=== PATIENT | female | born 1985 | race Caucasian/White ===

== ENCOUNTER 2020-02-04 06:15 | Outpatient (CLI) | payer MEDICAID, SELFPAY ==
[2020-02-04 16:20] LABS: SARS-CoV-2 RNA PCR Negative
--- NOTE | 2020-02-07 10:22 | OP_ITS ---
DATE OF PROCEDURE: 02/07/2020 PREOPERATIVE DIAGNOSIS: Missing IUD strings. POSTOPERATIVE DIAGNOSIS: Missing IUD strings. PROCEDURE PERFORMED: Cervical dilation with removal of IUD under anesthesia. SURGEON: Mónica Winston M.D. ANESTHESIA: MAC and local. FINDINGS: The IUD is removed intact. ESTIMATED BLOOD LOSS: Zero. PATHOLOGY: None. DESCRIPTION OF PROCEDURE: The patient was taken to the operating room, placed in the dorsal lithotomy position. She was prepped and draped in the usual sterile fashion and placed under anesthesia. Bivalved speculum was placed in the vagina. Cervix was grasped on the anterior lip with a tenaculum and injected with 1% lidocaine. The uterus was sounded to 7 cm. The cervix was serially dilated with Hegar. The polyp forceps were used to remove the IUD on the first attempt, intact. All instruments are removed. The patient is taken to Recovery in stable condition. Alla I MT: [facility]
== END 2020-02-04 06:16 | disposition home or self-care (01) ==
LOC: ANHCOVIDDT 06:16
PROVIDERS: Visit Provider Obstetrics & Gynecology Gynecology
DX: Z01.818 Encounter for other preprocedural examination (principal); Z11.59 Encounter for screening for other viral diseases; R10.2 Pelvic and perineal pain
CPT/HCPCS: 87635; U0003

== ENCOUNTER 2020-02-07 00:20 | Day surgery (SDC) | payer MEDICAID, SELFPAY ==
[2020-02-01 11:38] VITALS: BMI 26.2
[2020-02-07 07:07] VITALS: BP 98/76; PULSE 88; RESP 18; TEMP 36.7; O2SAT 100
--- NOTE | 2020-02-07 07:30 | PM.HPGS ---
History of Present Illness History of Present Illness Consent: Risks, benefits, and alternatives have been discussed and questions answered. Patient agrees to proceed with procedure. Chief complaint: misplaced IUD Narrative: Laina Bello is a 34 year old female with missing IUD strings. U/s showed IUD in place but patient did not tolerate attempted removal in office. Reviewed removal of IUD under anesthesia with possible need for hysteroscopy. Risks of infection, bleeding, and perforation reviewed. Patient instructed to wait one cycle before . She voices understanding and agrees to procee. PMF Past Medical History Medical History (Updated 02/07/20 @ 07:34 by Mónica Winston MD) Cancer of skin, squamous cell (normal spontaneous vaginal delivery) Skin cancer, basal cell Surgical History Surgical History (Updated 02/07/20 @ 07:33 by Mónica Winston MD) S/P appendectomy Meds Home Medications and Allergies Home Medications Medication Instructions Recorded Confirmed Type glucosamine-chondroitin [Osteo 1 tablet PO DAILY 02/01/20 02/01/20 History Bi-Flex] 21-iron fu-folic acid 1 tablet PO DAILY 02/01/20 02/01/20 History [ Complete] Allergies Allergy/AdvReac Type Severity Reaction Status Date / Time No Known Allergies Allergy Mild Unverified 02/01/20 11:40 Exam Const: General: healthy appearing and alert Orientation/consciousness: patient oriented x3 Resp: Effort & Inspection: normal respiratory effort Auscultation: clear to auscultation bilaterally Cardio: Rate: regular rate Rhythm: regular rhythm GI: GI Palp: Yes Soft to palpation, No Tenderness to palpation present (GI) and No Palpable mass present : External Female Exam: normal external appearance Speculum Exam - Vagina: normal appearance of the vagina and normal vaginal discharge Speculum Exam - Cervix: normal appearance of the cervix Bimanual exam- vagina & uterus: uterine size normal and consistency normal Bimanual Exam- Adnexa, other: normal adnexae and No adnexal tenderness Neuro: General: patient oriented x3 Assessment and Plan Assessment and plan (1) IUD strings lost: Code(s): T83.32XA - Displacement of intrauterine contraceptive device, initial encounter Status: Acute Assessment and Plan: Plan removal under anesthesia with possible hysteroscopic removal
[2020-02-07] MEDS: LACTATED RINGERS 1,000 ML 30 ML IV CONT (07:45)
--- NOTE | 2020-02-07 07:52 | WPDANESEPPF ---
Anes - Initial Pre Proc Eval Procedure: Operation Date: 02/07/20 09:00 Proposed Procedures p Hysteroscopy, Removal Intra Uterine Device - Mónica Winston MD Date/Time: 02/07/20 07:52 Surgeon: Mónica Winston MD Pre Op Diagnosis: misplaced IUD Patient Data Age: 34 Gender: F Height: 4 ft 11 in Weight: 57.7 kg Last Vital Signs Temp 36.7 C 02/07/20 07:07 Pulse 88 02/07/20 07:07 Resp 18 02/07/20 07:07 BP 98/76 L 02/07/20 07:07 Pulse Ox 100 02/07/20 07:07 Allergies Allergy/AdvReac Type Severity Reaction Status Date / Time No Known Allergies Allergy Mild Unverified 02/07/20 07:37 Home Medications Medication Instructions Recorded Confirmed Type glucosamine-chondroitin [Osteo 1 tablet PO DAILY 02/01/20 02/07/20 History Bi-Flex] 21-iron fu-folic acid 1 tablet PO DAILY 02/01/20 02/07/20 History [ Complete] Patient hx anesthesia problems: none Family hx anesthesia problems: none PMFSH Past Medical History Medical History (Updated 02/07/20 @ 07:53 by Willie Nair MD) Cancer of skin, squamous cell (normal spontaneous vaginal delivery) Polysubstance abuse Skin cancer, basal cell Surgical History Surgical History S/P appendectomy Anes - Eval Final PreProcedure Day of Procedure 02/07/20 07:52 Patient weight: normal Heart: regular rate and rhythm Lungs: decreased breath sounds Airway: Mallampati scale class II Neurological: alert and oriented Last oral intake: >/= 8 hours ASA classification: III Emergent: no Anesthetic plan: proceed Anesthesia type and monitoring: general GIVS and standard monitoring Informed Consent: The patient's anesthetic plan and its attendant risks and benefits were discussed with the patient/family/POA. Questions were solicited and answers provided to the satisfaction of the patient/family/POA.
[2020-02-07] MEDS: KETOROLAC 30 MG/ML VIAL (*BKC) 15 MG IV PUSH (09:30)
--- NOTE | 2020-02-07 09:31 | PM.OP ---
Procedure Note - Brief Procedure Note - Brief Date of procedure: 02/07/20 Pre-op diagnosis: misplaced IUD missing strings of IUD Post-op diagnosis: same Procedure performed: Removal of IUD under anesthesia; cervical dilation Anesthesia: MAC and local Surgeon: Mónica Winston MD Estimated blood loss (mL): 0 Drains: No Packing: No Pathology: none sent Complications: No immediate complications Condition: stable Disposition: PACU Findings: IUD removed intact
[2020-02-07 09:37] VITALS: BP 103/72; PULSE 81; RESP 15; O2SAT 92
--- NOTE | 2020-02-07 09:39 | OP_ITS ---
This report was moved to the correct visit, [id number] on 02/08/20. Original report was signed by Dr. Mónica Winston on 02/07/20 at 1126. DATE OF PROCEDURE: 02/07/2020 PREOPERATIVE DIAGNOSIS: Missing IUD strings. POSTOPERATIVE DIAGNOSIS: Missing IUD strings. PROCEDURE PERFORMED: Cervical dilation with removal of IUD under anesthesia. SURGEON: Mónica Winston M.D. ANESTHESIA: MAC and local. FINDINGS: The IUD is removed intact. ESTIMATED BLOOD LOSS: Zero. PATHOLOGY: None. DESCRIPTION OF PROCEDURE: The patient was taken to the operating room, placed in the dorsal lithotomy position. She was prepped and draped in the usual sterile fashion and placed under anesthesia. Bivalved speculum was placed in the vagina. Cervix was grasped on the anterior lip with a tenaculum and injected with 1% lidocaine. The uterus was sounded to 7 cm. The cervix was serially dilated with Hegar. The polyp forceps were used to remove the IUD on the first attempt, intact. All instruments are removed. The patient is taken to Recovery in stable condition. Alla I MT: [facility] Dictated By: Mónica Winston MD 02/07/20 0939 Transcribed Date/Time: 02/07/20 1017 Signed By: Mónica Winston MD 02/07/20 1126 [facility]
[2020-02-07 10:00] VITALS: BP 114/71; PULSE 65; RESP 16; O2SAT 95
[2020-02-07 10:20] VITALS: BP 118/69; PULSE 60; RESP 16
== END 2020-02-07 10:33 | disposition home or self-care (01) ==
PROVIDERS: Visit Provider Obstetrics & Gynecology Gynecology
PROC: 0U5B8ZZ Destruction of Endometrium, Via Natural or Artificial Opening Endoscopic (ICD-10-PCS; CPT 58563; principal; 2020-02-07 09:00)
DX: T83.32XA Displacement of intrauterine contraceptive device, initial encounter (principal); Y84.8 Other medical procedures as the cause of abnormal reaction of the patient, or of later complication, without mention of misadventure at the time of the procedure
CPT/HCPCS: 58562; A9270; J1100; J1885; J2001; J2250; J2405; J2704; J3010; J7030; J7120

== ENCOUNTER 2021-10-06 10:37 | Outpatient (CLI) | payer OTHER, SELFPAY ==
[2021-10-06 11:00] LABS: Basophils Percent Auto 0.3 % (0.2-1.2); Eosinophils Percent Auto 0.2 % (0-4.4); Immature Granulocyte Absolute 0.11 K/mm3 (0.00-0.031); Immature Granulocyte Percent A 0.9 % (0-0.5); Lymphocytes Absolute Auto 1.94 K/mm3 (0.9-3.2); Lymphocytes Percent Auto 15.4 % (18.3-44.2); Mean Corpuscular HGB Conc 34.1 g/dl (32-36); Mean Corpuscular Hemoglobin 31.4 pg (26-34); Mean Corpuscular Volume 91.9 fl (80-100); Mean Platelet Volume 9.9 fl (7.4-10.4); Monocytes Absolute Auto 0.7 K/mm3 (0.1-0.6); Monocytes Percent Auto 5.5 % (2.6-8.5); Neutrophils Absolute Auto 9.8 K/mm3 (1.3-6.7); Neutrophils Percent Auto 77.7 % (45.5-73.1); Platelet Count Result 197 k/mm3 (150-375); Red Blood Count 4.46 M/mm3 (4.2-5.4); Red Cell Distribution Width 13.2 % (11.5-14.5); White Blood Count 12.6 K/mm3 (4.5-10.0)
[2021-10-08 11:22] LABS: Rapid Plasma Reagin Non-Reactive (NonReactive)
== END 2021-10-06 10:38 | disposition home or self-care (01) ==
LOC: ANHOBOP 10:41
PROVIDERS: Visit Provider Obstetrics & Gynecology Gynecology
DX: Z01.818 Encounter for other preprocedural examination (principal)
CPT/HCPCS: 36415; 85025; 86592; 86850; 86900; 86901

== ENCOUNTER 2021-10-08 07:55 | Inpatient (IN) | payer OTHER, SELFPAY ==
[2021-10-08] VITALS (59 sets, daily range): BP systolic 61–117; BP diastolic 48–78; PULSE 52–206; RESP 12–18; TEMP 35.7–36.8; O2SAT 95–100; BMI 30.2
--- NOTE | 2021-10-08 07:45 | P.HP_ITS ---
H&P: HPI History of Present Illness Date/Time: 10/08/21 07:45 Chief Complaint: Intrauterine at 39 weeks; New herpes lesion Narrative: The patient is a 36-year-old 5 para 4 at 39 weeks gestation admitted for primary . At the patient's last OB visit on 10/04 she reported a tender area on the labia. On exam a 0.5cm ulceration is noted. Patient denies any history of herpes in the genital area out or orally. PCR testing of the lesion was performed and is pending. In addition the patient went for IgG and IgM HSV testing. The IgG returned on 10/05 as positive. It was discussed with the patient the risks of herpes to the infant if we delivered vaginally with a herpes lesion. It was recommended to proceed with a and the patient has agreed. The patient's has also been complicated by gestational diabetes diet controlled, IUGR with improved growth on the last several ultrasounds. Dopplers were initially elevated but have returned to normal. In addition the placenta was noted to have an accessory lobe. For advanced maternal age the patient is followed by [facility] with normal anatomy screen and a negative NIPT. labs: O positive, the RPR negative, hepatitis-B surface antigen negative, rubella immune, group B strep negative, HIV negative. PMFSH Past Medical History Medical History (Updated 10/08/21 @ 07:53 by Mónica Winston MD) (normal spontaneous vaginal delivery) X4 Surgical History Surgical History (Updated 10/08/21 @ 07:51 by Mónica Winston MD) History of appendectomy Family History Family History (Updated 09/17/21 @ 13:45 by Dean Martin RN) Other No pertinent family history Social History Social History Substance use: current Spiritual care concerns: No Meds Home Medications and Allergies Home Medications Medication Instructions Recorded Confirmed Type PNV cmb#95-ferrous fumarate-FA 1 tablet PO DAILY 09/17/21 09/17/21 History [] Allergies Allergy/AdvReac Type Severity Reaction Status Date / Time No Known Allergies Allergy Verified 09/17/21 13:53 Exam Const: General: healthy appearing and alert Orientation/consciousness: patient oriented x3 Resp: Effort & Inspection: normal respiratory effort GI: GI Palp: Yes Soft to palpation, No Tenderness to palpation present (GI) and Yes Other GI palpation findings present (Fundal height 37cm) : External Female Exam: other (0.5cm ulceration the left labia) Speculum Exam - Vagina: normal appearance of the vagina and normal vaginal discharge Speculum Exam - Cervix: normal appearance of the cervix Bimanual exam- vagina & uterus: uterine size normal and consistency normal Bimanual Exam- Adnexa, other: normal adnexae and No adnexal tenderness Neuro: General: patient oriented x3 Assessment and Plan Assessment and plan (1) 39 weeks gestation of : Code(s): Z3A.39 - 39 weeks gestation of Status: Acute (2) Genital HSV: Code(s): 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
--- NOTE | 2021-10-08 07:45 | WPDHPUPDATE1 ---
History and Physical Update Update Date/Time: 10/08/21 07:45 History and Physical has been reviewed, including an updated exam of the patient. There are NO changes in the patient's condition. Risks, benefits, and alternatives have been discussed and questions answered. Patient agrees to proceed with procedure.
--- NOTE | 2021-10-08 08:09 | WPDANESEPPF ---
Anes - Initial Pre Proc Eval Procedure: Operation Date: 10/08/21 10:00 Proposed Procedures p Primary Section - Mónica Winston MD Date/Time: 10/08/21 08:09 Surgeon: Mónica Winston MD Pre Op Diagnosis: Section Patient Data Age: 36 Gender: F Height: Weight: Allergies Allergy/AdvReac Type Severity Reaction Status Date / Time No Known Allergies Allergy Verified 09/17/21 13:53 Home Medications Medication Instructions Recorded Confirmed Type PNV cmb#95-ferrous fumarate-FA 1 tablet PO DAILY 09/17/21 09/17/21 History [] Patient hx anesthesia problems: none Family hx anesthesia problems: none Results Review: All pre-operative results and documents have been reviewed as part of the pre-operative evaluation. PMFSH Past Medical History Medical History (Updated 10/08/21 @ 07:53 by Mónica Winston MD) (normal spontaneous vaginal delivery) X4 Surgical History Surgical History (Updated 10/08/21 @ 07:51 by Mónica Winston MD) History of appendectomy Family History Family History Other No pertinent family history Social History Social History Substance use: current Spiritual care concerns: No Anes - Eval Final PreProcedure Day of Procedure 10/08/21 08:09 Patient weight: normal Heart: regular rate and rhythm Lungs: clear to auscultation Airway: Mallampati scale class II Neurological: alert and oriented Last oral intake: >/= 8 hours ASA classification: III Emergent: no Anesthetic plan: proceed Anesthesia type and monitoring: regional spinal and standard monitoring Results Review: All pre-operative results and documents have been reviewed as part of the pre-operative evaluation. Informed Consent: The patient's anesthetic plan and its attendant risks and benefits were discussed with the patient/family/POA. Questions were solicited and answers provided to the satisfaction of the patient/family/POA.
[2021-10-08 08:33] LABS: Glucose Point of Care 66 mg/dl (65-105)
[2021-10-08] MEDS: LACTATED RINGERS 1,000 ML 999 ML IV CONT (08:33)
--- NOTE | 2021-10-08 08:38 | LDADM ---
This patient, Laina Conway, was admitted to Labor/Delivery/Recovery 120 on 10/08/21 at 07:55. Plans for section, pain management and were discussed with patient. Patient/family oriented to hospital policies and general routines including ID bracelet, bed and alarms, visiting hours, pain management, procedures, bathroom and other care routines, personal items, smoking policy, room service/diet and guest tray routines, security routines, and visiting hours. Patient/Family are encouraged to report perceived risks to care and to ask questions if they do not understand what they are told or what they should do. See OBIX for further documentation.
[2021-10-08] MEDS: LACTATED RINGERS 1,000 ML 125 ML IV CONT (09:15)
[2021-10-08] MEDS: ceFAZolin 2 GM/D5W 50 ML 2 GM/50 ML BAG IVPB (09:50)
--- NOTE | 2021-10-08 10:33 | W.PM.PROC2 ---
Procedure Note - Detailed Date of Procedure 10/08/21 Pre-op Diagnosis Intrauterine at 39 weeks; primary herpes lesion; gestational diabetes diet control; small for gestational age; accessory lobe placenta Post-op Diagnosis same Procedure Performed Primary low-transverse section Surgeon Mónica Winston MD Anesthesia spinal Findings Female infant 5lb 15oz with 9 and 9 Apgars. Normal-appearing tubes ovaries and uterus Description of Procedure The patient was taken to the operating room and placed under anesthesia in the dorsal supine position with a leftward tilt. She was prepped and draped in the usual sterile fashion. Once anesthesia was deemed adequate, a Pfannenstiel skin incision was made with a scalpel and carried down to the underlying layer of fascia. The fascia was nicked in the midline with the scalpel and the incision extended laterally using Dobbs scissors. Ochsner was used to tent the fascia which was then dissected off using sharp and blunt dissection. The rectus muscles were in the midline the peritoneum was tented and entered with Metzenbaum scissors. The incision was extended with blunt traction. The bladder blade was placed. The vesicouterine peritoneum was tented and entered with Metzenbaum scissors. The incision was extended laterally and the bladder flap created digitally. A bleeding vessel in the bladder flap was cauterized for hemostasis. The lower uterine segment was incised in a transverse fashion with the scalpel. The incision was extended laterally using blunt traction. The membranes were ruptured and clear fluid noted. The infant's head was delivered through the incision while the assistant corporation counsel applied fundal pressure. The remainder of the was fully delivered and the cord clamped and cut. The infant was handed to the waiting nursery nurse. The cord blood for gases and lab were taken. The placenta is removed using manual traction. The placenta is inspected and noted to have the accessory lobe attached. The uterus is cleared of all clots and debris and exteriorized. The uterine incision was closed using 0 Monocryl in a running locked fashion. Same suture was used to imbricate and 1 additional [id number] suture for hemostasis. The cul-de-sac is irrigated and the uterus is returned to the abdomen. The gutters were irrigated. The incision is again inspected and noted to be hemostatic. The fascia is closed using 0 Vicryl in a running fashion. The subcutaneous tissues are irrigated and made hemostatic using Bovie cautery. Skin incision was closed using 4-0 Vicryl in a subcuticular fashion. Dermaflex was placed over the incision. Sponge, needle, and instrument counts are correct per the OR staff. The patient was given Ancef prior to incision. Estimated Blood Loss 455 Drains Yes (Schmitt catheter) Packing No Pathology yes (Placenta) Complications No immediate complications Condition stable Disposition floor
--- NOTE | 2021-10-08 10:39 | P.DS_ITS ---
DS: Admitting Diagnosis Discharge Date 10/11/21 Admitting Diagnosis Intrauterine at 39 weeks Primary herpes lesion Gestational diabetes diet controlled Small for gestational age Accessory lobe DS: Discharge Diagnosis Discharge Diagnosis (1) delivery delivered: Code(s): O82 - Encounter for delivery without indication Status: Acute OB - DS: Summary OB Procedures : NST and Ultrasound OB Procedures Intrapartum: low cervical, transverse OB Procedures: : None Peripartum Data Delivery Method: Section Procedures: Procedures Operation Date: 10/08/21 10:00 <No data on this case meets the specified criteria> complications: none Status at Discharge Functional status at discharge: independent ambulation Overall status at discharge: patient is progressing back to baseline Time Spent with Patient Time attestation: Total time spent providing and/or coordinating discharge services: DS: Data Data Completed and Pending Pending studies at discharge: Pending at discharge 10/08/21 10:16 Surgical [PTH] Routine Labs on day of discharge: Labs from last 24 hours 10/08/21 08:24 POC Capillary Glucose 66 Discharge Plan Discharge Attending physician on discharge: Mónica Winston Discharging Clinician: Mónica Winston Anticipated Discharge Date/Time: 10/11/21 10:38 Patient Disposition: Home, Self-Care Activity: may shower, may drive after 2 weeks and pelvic rest Diet: regular Wound Care Instructions: incision open to air Patient Instructions: Antibiotic Form Stand Alone Forms: General Discharge Information Follow-up/Referrals: Mónica Winston MD [Physician] - 1 Week (and 6 wk) Discharge Medications: New hydrocodone-acetaminophen 5-325 mg Tablet 1 tablet PO Q3H PRN (Reason: Moderate Pain (4-6)) Qty: 30 RF: 0 valacyclovir [Valtrex] 500 mg tablet 500 mg PO Q12H Qty: 90 RF: 3 medroxyprogesterone [Depo-Provera] 150 mg/mL syringe 150 mg IM [id number] Qty: 1 RF: 2 Continued PNV cmb#95-ferrous fumarate-FA [] 28 mg iron- 800 mcg Tablet 1 tablet PO DAILY RF: 0 ergocalciferol (vitamin D2) 1,250 mcg (50,000 unit) capsule 50,000 unit PO WEEKLY RF: 0 Date of admission: 01/10/22 07:55 Primary Care Provider: PHYSICIAN,[employer] INFORMATION CLERK Admitting Provider: Mónica Winston Attending physician on admission: Mónica Winston Condition: Stable
--- NOTE | 2021-10-08 13:10 | PC.NURSE ---
Patient transferred to post room #282 per stretcher from labor and delivery. Support person present. Oriented to unit, room, information board, rooming in, admission packet and security measures. Patient verbalizes understanding.
[2021-10-08 13:41] LABS: Amphetamine Screen Urine Negative (Negative); Barbiturate Screen Urine Negative (Negative); Benzodiazepines Screen Urine Negative (Negative); Cannabinoid Screen Urine Positive (Negative); Cocaine Screen Urine Negative (Negative); Methadone Screen Urine Negative (Negative); Opiate Screen Urine Negative (Negative); Phencyclidine Screen Urine Negative (Negative)
[2021-10-08] MEDS: OXYTOCIN 30 UNITS/NS 500 ML 30 UNITS/500 ML BAG 125 UNITS IV CONT (15:05)
[2021-10-08] MEDS: HYDROcodone/acetaminophen (*CRX) 5-325 MG TABLET 1 TAB PO (19:13)
[2021-10-08] MEDS: DEXTROSE 5%/0.45% SOD CHL 1,000 ML 125 ML IV CONT (19:14)
[2021-10-08] MEDS: valACYclovir HCL 500 MG TABLET PO (20:38)
[2021-10-08] MEDS: KETOROLAC 30 MG/ML VIAL (*BKC) IV PUSH (23:50)
[2021-10-09 04:30] VITALS: BP 92/62; PULSE 72; RESP 18; TEMP 36.1; O2SAT 97
[2021-10-09] MEDS: HYDROcodone/acetaminophen (*CRX) 5-325 MG TABLET 1 TAB PO ×2 (04:30→18:34)
[2021-10-09 05:22] LABS: Basophils Percent Auto 0.3 % (0.2-1.2); Eosinophils Absolute Auto 0.1 K/mm3 (0-0.3); Eosinophils Percent Auto 0.5 % (0-4.4); Hematocrit 36.3 % (37.0-47.0); Hemoglobin 12.1 g/dL (12.0-15.0); Immature Granulocyte Absolute 0.05 K/mm3 (0.00-0.031); Immature Granulocyte Percent A 0.4 % (0-0.5); Lymphocytes Absolute Auto 1.36 K/mm3 (0.9-3.2); Lymphocytes Percent Auto 11.9 % (18.3-44.2); Mean Corpuscular HGB Conc 33.3 g/dl (32-36); Mean Corpuscular Hemoglobin 30.8 pg (26-34); Mean Corpuscular Volume 92.4 fl (80-100); Monocytes Absolute Auto 0.6 K/mm3 (0.1-0.6); Monocytes Percent Auto 5.3 % (2.6-8.5); Neutrophils Absolute Auto 9.4 K/mm3 (1.3-6.7); Neutrophils Percent Auto 81.6 % (45.5-73.1); Platelet Count Result 168 k/mm3 (150-375); Red Blood Count 3.93 M/mm3 (4.2-5.4); Red Cell Distribution Width 13.2 % (11.5-14.5); White Blood Count 11.5 K/mm3 (4.5-10.0)
--- NOTE | 2021-10-09 07:25 | PM.OBPNVD ---
OB - PN: Subj Subjective Date/time seen: 10/09/21 07:25 Patient comments: no complaints and pain well controlled baby status: doing well OB - PN: Obj Data Labs CBC & Chem 7: 10/09/21 04:38 Labs: Laboratory Results - last 24 hr 10/08/21 10/08/21 10/09/21 08:24 12:35 04:38 WBC 11.5 H RBC 3.93 L Hgb 12.1 Hct 36.3 L MCV 92.4 MCH 30.8 MCHC 33.3 RDW 13.2 Plt Count 168 MPV 10.0 Immature Gran % (Auto) 0.4 Neut % (Auto) 81.6 H Lymph % (Auto) 11.9 L [place] % (Auto) 5.3 Eos % (Auto) 0.5 Baso % (Auto) 0.3 Lymph # (Auto) 1.36 [place] # (Auto) 0.6 Eos # (Auto) 0.1 Baso # (Auto) 0.0 Abs Immat Gran (auto) 0.05 H Absolute Neuts (auto) 9.4 H Absolute Nucleated RBC 0.0 Nucleated RBC % 0.0 POC Capillary Glucose 66 Urine Opiates Screen Negative Urine Methadone Screen Negative Ur Barbiturates Screen Negative Ur Phencyclidine Scrn Negative Ur Amphetamine Screen Negative U Benzodiazepines Scrn Negative Urine Cocaine Screen Negative U Cannabinoids Screen Positive A OB - PN A/P Plan day: 1 Plan: routine care Time Spent With Patient Time: Total time spent is greater than 50% in coordination of care (as documented) at patient's floor/unit and/or counseling patient: Exam Narrative: inc c/d/i : Bimanual exam- vagina & uterus: other (Uterus firm, nt @U)
--- NOTE | 2021-10-09 07:30 | WPDANESPN ---
Anes - Prog Note Post-Op Date/Time: 10/09/21 07:30 Cardiovascular status: normal Respiratory status: normal Airway patency: baseline Mental status: baseline Post-Op hydration status: normal Vital Signs: Last Vital Signs Temp 97 F L 10/09/21 04:30 Pulse 72 10/09/21 04:30 Resp 18 10/09/21 04:30 BP 92/62 L 10/09/21 04:30 Pulse Ox 97 10/09/21 04:30 Pain Score (VAS): 0 I/O: Intake & Output 10/08/21 10/08/21 10/09/21 15:59 23:59 07:59 Intake Total 1100 420 200 Output Total 780 4095 1100 Balance 007 -4795 -964 Laboratory Tests 10/09/21 04:38 10/08/21 10/08/21 10/09/21 08:24 12:35 04:38 WBC 11.5 H RBC 3.93 L Hgb 12.1 Hct 36.3 L MCV 92.4 MCH 30.8 MCHC 33.3 RDW 13.2 Plt Count 168 MPV 10.0 Immature Gran % (Auto) 0.4 Neut % (Auto) 81.6 H Lymph % (Auto) 11.9 L [place] % (Auto) 5.3 Eos % (Auto) 0.5 Baso % (Auto) 0.3 Lymph # (Auto) 1.36 [place] # (Auto) 0.6 Eos # (Auto) 0.1 Baso # (Auto) 0.0 Abs Immat Gran (auto) 0.05 H Absolute Neuts (auto) 9.4 H Absolute Nucleated RBC 0.0 Nucleated RBC % 0.0 POC Capillary Glucose 66 Urine Opiates Screen Negative Urine Methadone Screen Negative Ur Barbiturates Screen Negative Ur Phencyclidine Scrn Negative Ur Amphetamine Screen Negative U Benzodiazepines Scrn Negative Urine Cocaine Screen Negative U Cannabinoids Screen Positive A Post-procedural complaints: none Patient Feedback: Patient satisfied with anesthetic care.
--- NOTE | 2021-10-09 07:30 | WPDANLDNPN2 ---
Anes-Prog Note L&D-Neuraxial Date/Time: 10/09/21 07:30 Neuraxial medications: intrathecal PF morphine Opiod-related complaints: none Patient feedback: Patient satisfied with post-operative pain management.
--- NOTE | 2021-10-09 07:34 | WPDANLDPN2 ---
Anes-Prog Note L&D Date/Time: 10/09/21 07:34 Comfortable throughout: section Neuraxial method: spinal Epidural/Spinal procedure site: clean & non-tender Neuro status: Neuro function grossly intact. Cardiovascular status: normal Respiratory status: normal Airway patency: baseline Mental status: baseline Post-Op hydration status: normal Vital Signs: Last Vital Signs Temp 97 F L 10/09/21 04:30 Pulse 72 10/09/21 04:30 Resp 18 10/09/21 04:30 BP 92/62 L 10/09/21 04:30 Pulse Ox 97 10/09/21 04:30 Pain score (VAS): 0-1 I/O: Intake & Output 10/08/21 10/08/21 10/09/21 15:59 23:59 07:59 Intake Total 1100 420 200 Output Total 780 1625 1100 Balance 335 -[phone] -383 Post-procedural complaints: none Patient feedback: Patient satisfied with anesthetic care.
[2021-10-09 07:35] VITALS: BP 104/73; PULSE 67; RESP 16; TEMP 36.5; O2SAT 100
[2021-10-09] MEDS: HYDROcodone/acetaminophen (*CRX) 10-325 MG TABLET 1 TAB PO ×3 (09:10→22:53)
[2021-10-09] MEDS: MULTIVIT/MIN/PREN/FOL AC/IRON TABLET 1 TAB PO (09:11)
[2021-10-09] MEDS: IBUPROFEN 600 MG TABLET PO ×3 (09:11→22:53)
[2021-10-09] MEDS: valACYclovir HCL 500 MG TABLET PO ×2 (09:12→20:43)
[2021-10-09] MEDS: DOCUSATE SODIUM 100 MG CAPSULE PO ×2 (09:12→18:34)
[2021-10-09] MEDS: SIMETHICONE 80 MG TAB.CHEW PO ×3 (09:13→22:51)
--- NOTE | 2021-10-09 12:36 | PC.NURSE ---
10/08/2021 1430 - Consulted with patient, reviewed feeding cues, skin to skin placement, frequencies, duration of feedings, feeding elimination flow sheet, and signs of adequate intake. Demonstrated stimulation techniques to wake for feeding. Assisted with to breast. is sleepy and reluctant. Reviewed positioning/alignment, holding breast and asymmetrical latch on. Infant was unable to latch correctly. Reviewed signs of a correct latch, effective nursing and suck swallow ratio. Nipple care reviewed. Instructed mother to call out for RN assistance if she is unable to latch for feeding or she has discomfort with nursing. Instructed feeding should be initiated three hours from start of last feeding or if feeding cues are noted before. Mother voiced understanding of information shared. RN reported to primary RN. before leaving shift. 10/09/2021 0730 - Reported to RN last night had a low blood sugar of 28 that was brought up to 70 with sugar gel. Nipple shield and supplementation (formula) was initiated per Kostas Guardado RN. 0820 - Mom is preparing to shower. Reviewed feeding cues, skin to skin and agrees to call RN for assistance with . 1046 - Primary RN reported mom has placed infant skin to skin, has had a lot of traffic in/out of her room and will call with feeding cues. 1250 - Mom stated she breastfed 40 min at 1050. Pt has nipple tenderness after but not during feed. Consulted with patient, reviewed infant feeding cues, frequencies, duration of feedings, feeding elimination flow sheet, and signs of adequate intake. Demonstrated stimulation techniques to wake for feeding. Instructed mother to call out for RN assistance if she is unable to latch infant for feeding or she has discomfort with nursing. Infant is sleeping at this time. Instructed feeding should be initiated three hours from start of last feeding or if feeding cues are noted before. Mother voiced understanding of information shared.
--- NOTE | 2021-10-09 13:36 | PCCCNOTE ---
Care Coordination met with pt. this morning to discuss discharge planning. Pt.'s current D/C plan is to return home with FOB, other children, and baby. Pt. states she has a 17,14,8, and 6 year old at home. Pt.'s has a 15 and 14 year old. Pt. states they have everything needed to safely bring baby home. She confirms she has a car seat at time of D/C. Pt. states she will continue to breast feed at time of D/C. She is not current with [facility]. Pt. and baby tested positive for Marijuana at time of admission. Pt. has been informed that CC will report drug use to [facility] via online report. Pt. is upset that a report is being done, support and further information was provided. Pt. has no questions or concerns at this time. CC completed online report, intake ID [id number]. Will follow.
--- NOTE | 2021-10-09 15:31 | PC.NURSE ---
1430 - Consulted with patient, reviewed infant feeding cues, frequencies, duration of feedings, feeding elimination flow sheet, and signs of adequate intake. Demonstrated stimulation techniques to wake for feeding. Assisted with skin to skin. Reviewed positioning/alignment, holding breast and asymmetrical latch on with a nipple shield and without. Infant was unable to latch correctly without nipple shield. Reviewed signs of a correct latch, effective nursing and suck swallow ratio. was able to maintain latch without discomfort to mother with a nipple shield. Nipple care reviewed. Breast pump provided due to ineffective latch and infant discontented after with a nipple shield. Instructions given on breast pump care and usage, pumping schedule, nipple care, and collection and storage of breast milk. Mom also desires to pump and feed when she goes home. Encouraged [id number], breast massage and manual expression to stimulate supply. Pumping schedule will be documented on the feeding sheet. Assessed patient for correct flange size, placement and draw. Patient verbalizes and demonstrates understanding of instructions. After pumping mom used her fingers to apply the colostrum on flange to infants mouth. With nipples pulled out mom attempted to effectively latch infant to her breast. was effectively latched with ease in the cross cradle position on the left breast with asymmetrical latch. Suck swallow ratio reviewed, appropriate and observed by RN and mother. Instructed mother to call out for RN assistance if she is unable to latch for feeding or she has discomfort with nursing. for future feeds mom plans on using the pump to draw her nipples out, then latch . Instructed feeding should be initiated three hours from start of last feeding or if feeding cues are noted before. Mother voiced understanding of information shared. RN reported to primary RN.
[2021-10-09 18:30] VITALS: BP 133/91; PULSE 68; RESP 18; TEMP 36.9
[2021-10-10] MEDS: IBUPROFEN 600 MG TABLET PO (05:00)
[2021-10-10] MEDS: HYDROcodone/acetaminophen (*CRX) 10-325 MG TABLET 1 TAB PO ×2 (05:00→08:17)
[2021-10-10] MEDS: SIMETHICONE 80 MG TAB.CHEW PO ×2 (05:16→08:16)
--- NOTE | 2021-10-10 07:16 | PM.OBPNVD ---
OB - PN: Subj Subjective Date/time seen: 10/10/21 07:16 Patient comments: no complaints, pain well controlled and other (valtrex helping a lot) [place] baby status: doing well OB - PN: Obj Data Labs CBC & Chem 7: 10/09/21 04:38 OB - PN A/P Plan day: 2 Plan: routine care, discharge home and other (plans DepoProvera for bc) Time Spent With Patient Time: Total time spent is greater than 50% in coordination of care (as documented) at patient's floor/unit and/or counseling patient: Exam Narrative: inc c/d/i : Bimanual exam- vagina & uterus: other (Uterus firm, nt @U)
[2021-10-10] MEDS: DOCUSATE SODIUM 100 MG CAPSULE PO (08:16)
[2021-10-10] MEDS: MULTIVIT/MIN/PREN/FOL AC/IRON TABLET 1 TAB PO (08:16)
[2021-10-10] MEDS: valACYclovir HCL 500 MG TABLET PO (08:16)
[2021-10-10 08:45] VITALS: BP 139/76; PULSE 63; RESP 18; TEMP 36.1; O2SAT 100
[2021-10-10] MEDS: medroxyPROGESTERone ACETATE IM 150 MG/ML SYR IM (11:12)
--- NOTE | 2021-10-10 12:32 | PC.NURSE ---
1000 - Mother verbalizes she is able to independently latch with appropriate positioning/alignment. She denies any nipple discomfort, is feeding as required and waking infant to feed if needed. has had 8-12 effective feedings in the past 24 hours, and is currently meeting outcomes for weight, output, jaundice and feeding frequencies. Mother states she feels confident to continue effective at home Reviewed transition to breast milk, signs of adequate intake, and engorgement/relief. Instructed to call ICP if intake/output less than required. Reviewed community resources on the [facility] and in the Mom/Baby guide. Information on outpatient services provided. Mother has no further questions at this time.
== END 2021-10-10 11:42 | disposition home or self-care (01) | DRG 787 ==
LOC: ANHLDR 10:39 → ANHOB2 14:11
PROVIDERS: Admitting Provider Obstetrics & Gynecology Gynecology; Visit Provider Obstetrics & Gynecology Gynecology
PROC: 10D00Z1 Extraction of Products of Conception, Low, Open Approach (ICD-10-PCS; CPT 59514; principal; 2021-10-08 10:00)
DX: O24.420 Gestational diabetes mellitus in childbirth, diet controlled (principal); O98.32 Other infections with a predominantly sexual mode of transmission complicating childbirth; A60.00 Herpesviral infection of urogenital system, unspecified; O36.5930 Maternal care for other known or suspected poor fetal growth, third trimester, not applicable or unspecified; O43.193 Other malformation of placenta, third trimester; Z3A.39 39 weeks gestation of pregnancy; Z37.0 Single live birth
CPT/HCPCS: 36415; 80307; 82948; 85025; 86592; 86850; 86900; 86901; 88307; A9270; J0131; J0690; J1050; J1885; J2274; J2590; J7120